=== PATIENT | male | born 1995 | race Caucasian/White ===

== ENCOUNTER 2024-03-26 15:14 | Emergency (ER) | payer OTHER ==
[~2024-03-26] VITALS: Ht 175.3 cm; Wt 78.0 kg
[2024-03-26 15:42] VITALS: BP 151/91; PULSE 67; O2SAT 100
--- NOTE | 2024-03-26 16:03 | ED.PDOC ---
HPI Comments 28 year old male presents to the ED with chief complaint of laceration to left hand. 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 Patient relays that he had lacerated his left fourth finger, going all the way down to the bone. Patient states he controlled the bleeding with a rag. Patient notes he is still able to move and feel in his finger. Patient denies any numbness, weakness, blue discoloration, or any other injury. 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, Work Related Last Tetanus: UTD Laceration Length (cm): 2 Skin Type: Avulsion, Irregular Depth of Injury: Bone Capillary Refill: < 3 seconds Tender: Moderate Discharge: Bloody Erythema: Localized to Wound Edges Past Medical History PAST MEDICAL HISTORY: Denies Surgical History: Appendectomy Family History Family History: Reviewed,noncontributory to illness Social History Smoker: Non-Smoker Alcohol: Denies ETOH Use Drugs: Denies Drug Use Lives In: Home Constitutional: denies: chills, diaphoresis, fatigue, fever, malaise, sweats, weakness, others EENTM: denies: blurred vision, double vision, ear bleeding, ear discharge, ear drainage, ear pain, ear ringing, eye pain, eye redness, hearing loss, mouth pain, mouth swelling, nasal discharge, nose bleeding, nose congestion, nose pain, photophobia, tearing, throat pain, throat swelling, voice changes, others Respiratory: denies: cough, hemoptysis, orthopnea, SOB at rest, shortness of breath, SOB with excertion, stridor, wheezing, others Cardiovascular: denies: chest pain, dizzy spells, diaphoresis, Dyspnea on exertion, edema, irregular heart beat, left arm pain, lightheadedness, palpitations, PND, syncope, others Gastrointestinal: denies: abdomen distended, abdominal pain, blood streaked bowels, constipated, diarrhea, dysphagia, difficulty swallowing, hematemesis, melena, nausea, poor appetite, poor fluid intake, rectal bleeding, rectal pain, vomiting, others Genitourinary: denies: burning, dysuria, flank pain, frequency, hematuria, incontinence, penile discharge, penile sore, pain, testicle pain, testicle swelling, urgency, others Neurological: denies: dizziness, fainting, headache, left sided numbness, left sided weakness, numbness, paresthesia, pre-existing deficit, right sided numbness, right sided weakness, seizure, speech problems, tingling, tremors, weakness, others Musculoskeletal: denies: back pain, gout, joint pain, joint swelling, muscle pain, muscle stiffness, neck pain, others Integumetry: reports: laceration (Left fourth finger); denies: bruises, change in color, change in hair/nails, dryness, lesions, lumps, rash, wounds, others Allergic/Immunocompromised: denies: Difficulty Healing, Frequent Infections, Hives, Itching, others Hematologic/Lymphatic: denies: anemia, blood clots, easy bleeding, easy bruising, swollen glands, others Endocrine: denies: excessive hunger, excessive sweating, excessive thirst, excessive urination, flushing, intolerance to cold, intolerance to heat, unexplained weight gain, unexplained weight loss, others Psychiatric: denies: anxiety, bipolar disorder, depression, hopeless, panic disorder, schizophrenia, sleepless, suicidal, others All Other Systems: Reviewed and Negative Physical Exam General Appearance: No Apparent Distress, Normal HEENT: Normal ENT Inspection, Pharynx Normal, TMs Normal Neck: Full Range of Motion, Non-Tender, Normal, Normal Inspection Respiratory: Chest Non-Tender, Lungs Clear, No Accessory Muscle Use, No Respiratory Distress, Normal Breath Sounds Cardiovascular: No Edema, No JVD, No Murmur, No Gallop, Normal Peripheral Pulses, Regular Rate/Rhythm Breast Exam: Deferred Gastrointestinal: No Organomegaly, Non Tender, No Pulsatile Mass, Normal Bowel Sounds, Soft Genitalia: Deferred Pelvic: Deferred Rectal: Deferred Extremities: No calf tenderness, Normal capillary refill, Normal range of motion, No pedal edema, Other (2cm irregular avulsion laceration to the left fourth digit between DIP and MCP. Positive CMS.) Musculoskeletal : Apperance: Normal Neurologic: Alert, cesspool cleaner II-XII nml as Tested, No Motor Deficits, Normal Affect, Normal Mood, No Sensory Deficits Cerebellar Function: Normal Reflexes: Normal Skin: Dry, Normal Color, Warm Lymphatic: No Adenopathy Was a procedure done? Was a procedure done?: Yes Sedation Sedation?: No Laceration Repair : Location Left fourth digit between DIP and MCP Length 2cm Anesthetic: Lidocaine, Without epi Laceration Repair Prep: Saline, Betadine, by Irrigation, Manual Scrub Laceration Repair Wound Comple: subcut tissue repair, debridement Laceration Repair: Number of sutures (4), Size (4-0), Nylon Informed consent obtained: Yes Risks, benefits, and alternati: Yes Differential diagnosis Generic Laceration: Laceration, Avulsion X-Ray, Labs, Meds, VS Vital Signs Date Time Temp Pulse Resp B/P (MAP) Pulse Ox O2 Delivery O2 Flow Rate FiO2 03/26/24 16:10 18 Room Air* 0 21 03/26/24 15:42 99.4 67 20 151/91 (111) 100 Current Medications Medications (Trade) Dose Ordered Sig/Saroj Route Start Time Stop Time Status Last Admin Diphtheria/ Tetanus/Acell Pertussis (Boostrix T-Dap) 0.5 ml ONCE ONCE IM 03/26/24 16:00 03/26/24 16:01 DC 03/26/24 16:08 X-Ray, Labs, Meds, VS Comment Imaging: X-rays and CT scans were reviewed and interpreted by this provider, comminuted fracture of the left hand 4th digit phalanges between the PIP and D IP. Pending radiology review. Laboratory: Labs reviewed and interpreted by this provider. No significant abnormalities noted. Patient has prior medical visits reviewed. Med reconciliation performed Vital signs reviewed Time of 1ST Reevaluation: 16:57 Reevaluation 1ST: Improved Patient Education/Counseling: Diagnosis, Treatment, Need For Follow Up (Follow up with worker's comp doctor in next available appointment) Family Education/Counseling: No Family Present Departure 1 Departure Time of Disposition: 17:06 Impression: Primary Impression: Finger laceration Qualified Codes: S61.215A - Laceration without foreign body of left ring finger without damage to nail, initial encounter Additional Impression: Crush injury Disposition: HOME / SELF CARE / HOMELESS Condition: Fair e-Prescriptions Ibuprofen Micronized (Ibuprofen) 800 Mg Tab 800 MG PO TID PRN, #30 TAB Prov: NAY ORTIZ 03/26/24 Amoxicillin & Pot Clavulanate (AUGMENTIN TABLET) 875 Mg Tb 875 MG PO BID for 7 Days, #14 TAB Prov: NAY ORTIZ 03/26/24 Discharged With: Self Critical Care Note Critical Care Time?: No Stability Stability form required: No Heart Score Heart Score: Heart Score Response (Comments) Value History N/A 0 EKG N/A 0 Age N/A 0 Risk Factors N/A 0 Troponin N/A 0 Total 0 I personally scribed for NAY ORTIZ ([email or web address]) on 03/26/24 at 16:03. Electronically submitted by Abilio Bingham ([email or web address]). NAY ORTIZ Mar 26, 2024 16:03
[2024-03-26] MEDS: TETANUS-DIPTH-ACEL PERTUSSIS 0.5ML SYR Tdap IM ONE (16:08)
--- NOTE | 2024-03-26 16:08 | DVH ---
CLINICAL INDICATION: crush injury TECHNIQUE: 3 radiographic views of the left finger were obtained. Comparison: None FINDINGS/IMPRESSION: Minimally displaced comminuted fracture middle phalanx left 4th finger. The visualized joint space is well maintained. The alignment is anatomical. There is no radiopaque foreign body.
[2024-03-26 16:10] VITALS: RESP 18
[2024-03-26] MEDS ORDERED: AUG875T PO (17:07)
[2024-03-26] MEDS ORDERED: IBUP-1455 PO (17:07)
== END 2024-03-26 18:24 | disposition home or self-care (01) ==
LOC: ER 15:14
DX: S61.215A Laceration without foreign body of left ring finger without damage to nail, initial encounter (principal); Z90.49 Acquired absence of other specified parts of digestive tract; X58.XXXA Exposure to other specified factors, initial encounter; Y93.89 Activity, other specified; Y92.89 Other specified places as the place of occurrence of the external cause; Y99.8 Other external cause status
CPT/HCPCS: 12001; 73140; 90471; 90715